=== PATIENT | male | born 1965 | race Caucasian/White ===

== ENCOUNTER 2022-01-07 06:46 | Day surgery (SDC) | payer BC, OTHER ==
[2022-01-07] MEDS ORDERED: LIDOCAINE HCL 2% 100 MG/5 ML IJ ONE (06:47)
[2022-01-07] MEDS ORDERED: DIPRIVAN 200 MG/20 ML IV ONE (08:05)
[2022-01-07] MEDS ORDERED: Lactated Ringers 1,000 ML IV ONE (08:57)
--- NOTE | 2022-01-07 10:25 | XRAY ---
Indication: Left C2-C4 MBB. Intraoperative fluoroscopy provided for 16 seconds. 2 digital spot image submitted for interpretation demonstrates posterior needle tips projecting over the expected left C2-C4 nerve roots. Correlate with intraoperative findings/report. Incidental incompletely visualized C3-C5 anterior fusion hardware.
--- NOTE | 2022-01-07 10:31 | XRAY ---
16 seconds fluoroscopy time in surgery for left C2-C4 MBB.
== END 2022-01-07 08:48 | disposition home or self-care (01) ==
LOC: SDC-PAIN 06:46
PROVIDERS: ATTEND Psychiatry & Neurology Pain Medicine
DX: M47.812 Spondylosis without myelopathy or radiculopathy, cervical region (principal); E11.9 Type 2 diabetes mellitus without complications; Z79.899 Other long term (current) drug therapy
CPT/HCPCS: 64490; 64491; 72040; 77002; 82947; J2704

== ENCOUNTER 2022-03-04 08:17 | Day surgery (SDC) | payer OTHER ==
[2022-03-04] MEDS ORDERED: Marcaine Mpf 0.5% Vial 30 Ml IJ ONE (08:18)
[2022-03-04] MEDS ORDERED: DIPRIVAN 200 MG/20 ML IV ONE (10:01)
[2022-03-04] MEDS ORDERED: Lactated Ringers 1,000 ML IV ONE (10:53)
--- NOTE | 2022-03-04 11:09 | XRAY ---
Indication: Left C2-C4 MBB. Intraoperative fluoroscopy provided for 20 seconds. 2 digital spot image submitted for interpretation demonstrates posterior needle tips projecting over the expected left C2-C4 nerve roots. Correlate with intraoperative findings/report. Incidental C3-C5 anterior fusion hardware.
--- NOTE | 2022-03-04 12:07 | XRAY ---
20 seconds of fluoroscopy was used in surgery for a left C2-C4 MBB.
== END 2022-03-04 10:23 | disposition home or self-care (01) ==
LOC: SDC-PAIN 08:17
PROVIDERS: ATTEND Psychiatry & Neurology Pain Medicine
DX: M47.812 Spondylosis without myelopathy or radiculopathy, cervical region (principal); E11.9 Type 2 diabetes mellitus without complications; Z79.899 Other long term (current) drug therapy
CPT/HCPCS: 64490; 64491; 72040; 77002; 82947; J2704

== ENCOUNTER 2022-04-01 11:57 | Day surgery (SDC) | payer OTHER ==
[2022-04-01] MEDS ORDERED: Decadron 4 MG INJ IV ONE (11:58)
[2022-04-01] MEDS ORDERED: Marcaine Mpf 0.5% Vial 30 Ml IJ ONE (11:58)
[2022-04-01] MEDS ORDERED: Xylocaine 1% Vial 30 ML PF IJ ONE (11:58)
[2022-04-01] MEDS ORDERED: DIPRIVAN 200 MG/20 ML IV ONE (12:59)
[2022-04-01] MEDS ORDERED: Lactated Ringers 1,000 ML IV ONE (15:30)
--- NOTE | 2022-04-01 17:27 | XRAY ---
Indication: Left C2-C4 RFA. Intraoperative fluoroscopy provided for 18 seconds. 2 digital spot image submitted for interpretation demonstrates posterior needle tip projecting projecting over the expected left C2-C4 nerve roots. Correlate with intraoperative findings/report. Incidental C3-C5 anterior fusion hardware.
--- NOTE | 2022-04-01 17:46 | XRAY ---
18 seconds of fluoroscopy was used in surgery for a left C2-C4 RFA.
== END 2022-04-01 15:55 | disposition home or self-care (01) ==
LOC: SDC-PAIN 11:57
PROVIDERS: ATTEND Psychiatry & Neurology Pain Medicine
DX: M47.812 Spondylosis without myelopathy or radiculopathy, cervical region (principal); E11.9 Type 2 diabetes mellitus without complications; Z79.899 Other long term (current) drug therapy
CPT/HCPCS: 01939; 64633; 64634; 72040; 77002; 82947; J1100; J2001; J2704

== ENCOUNTER 2023-01-27 09:04 | Day surgery (SDC) | payer MEDICARE ==
[2023-01-27] MEDS ORDERED: LIDOCAINE HCL 2% 100 MG/5 ML IJ ONE (09:05)
[2023-01-27] MEDS ORDERED: DIPRIVAN 200 MG/20 ML IV ONE (10:29)
--- NOTE | 2023-01-27 10:55 | XRAY ---
Indication: Right L4-S1 MBB. Intraoperative fluoroscopy provided for 14 seconds. Single digital spot image submitted for interpretation demonstrates posterior needle tips projecting over the expected left and right L4-S1 nerve roots. Correlate with intraoperative findings/report.
[2023-01-27] MEDS ORDERED: Lactated Ringers 1,000 ML IV ONE (11:05)
--- NOTE | 2023-01-27 13:17 | XRAY ---
14 seconds of fluoroscopy was used in surgery for a right L4-S1 MBB.
== END 2023-01-27 11:00 | disposition home or self-care (01) ==
LOC: SDC-PAIN 09:04
PROVIDERS: ATTEND Psychiatry & Neurology Pain Medicine
DX: M47.816 Spondylosis without myelopathy or radiculopathy, lumbar region (principal); E11.9 Type 2 diabetes mellitus without complications; Z79.899 Other long term (current) drug therapy
CPT/HCPCS: 64493; 64494; 72020; 77002; 82947; J2704

== ENCOUNTER 2023-04-14 07:48 | Day surgery (SDC) | payer MEDICARE ==
[2023-04-14] MEDS ORDERED: BUPIVACAINE 0.5% VIAL IJ ONE (07:49)
[2023-04-14] MEDS ORDERED: LIDOCAINE HCL 1% 50 MG/5 ML VL PF IJ ONE (07:49)
[2023-04-14] MEDS ORDERED: Depo-Medrol 40 MG/ML IM ONE (07:49)
[2023-04-14] MEDS ORDERED: DIPRIVAN 200 MG/20 ML IV ONE (09:08)
[2023-04-14] MEDS ORDERED: Lactated Ringers 1,000 ML IV ONE (09:25)
--- NOTE | 2023-04-14 10:17 | XRAY ---
Indication: Right L4-S1 RFA. Intraoperative fluoroscopy provided for 17 seconds. 3 digital spot images submitted for interpretation demonstrates posterior needle tips projecting over the right L4-S1 nerve roots. Correlate with intraoperative findings/report.
--- NOTE | 2023-04-14 10:53 | XRAY ---
17 seconds of fluoroscopy was used in surgery for a right L4-S1 RFA.
== END 2023-04-14 09:40 | disposition home or self-care (01) ==
LOC: SDC-PAIN 07:48
PROVIDERS: ATTEND Psychiatry & Neurology Pain Medicine
DX: M47.816 Spondylosis without myelopathy or radiculopathy, lumbar region (principal); E11.9 Type 2 diabetes mellitus without complications; Z79.899 Other long term (current) drug therapy
CPT/HCPCS: 64635; 64636; 72100; 77002; 82947; J1030; J2001; J2704

== ENCOUNTER → 2023-07-14 | Day surgery (SDC) | payer MEDICARE ==
[~2023-07-14] MED LIST: BUPIVACAINE 0.5% VIAL IJ ONE; DIPRIVAN 200 MG/20 ML IV ONE; Decadron 4 MG INJ IV ONE; Depo-Medrol 40 MG/ML IM ONE; Lactated Ringers 1,000 ML IV ONE; XYLOCAINE-MPF 1% 5ML SDV IJ ONE
--- NOTE | 2023-07-14 12:13 | XRAY ---
Indication: Right SI joint and right piriformis injection. Intraoperative fluoroscopy provided for 22 seconds. 5 digital spot image submitted for interpretation demonstrates posterior needle tip projecting over the right SI joint. Second needle tip projects over right piriformis with small amount of contrast injected for needle tip placement. Correlate with intraoperative findings/report.
--- NOTE | 2023-07-14 12:27 | XRAY ---
22 seconds of fluoroscopy was used in surgery for a right sacroiliac joint and right piriformis injection.
== END ==
LOC: SDC-PAIN 08:34
PROVIDERS: ATTEND Psychiatry & Neurology Pain Medicine
DX: M46.1 Sacroiliitis, not elsewhere classified (principal); M79.18 Myalgia, other site; E11.9 Type 2 diabetes mellitus without complications; Z79.899 Other long term (current) drug therapy
CPT/HCPCS: 01992; 20550; 27096; 72170; 77002; 82947; G0260; J1030; J1100; J2704; Q9966

== ENCOUNTER 2024-05-17 07:49 | Day surgery (SDC) | payer MEDICARE, SELFPAY ==
[2024-05-17] MEDS ORDERED: LIDOCAINE HCL 1% AMPUL 5 ML IJ ONE (07:50)
[2024-05-17] MEDS ORDERED: BUPIVACAINE 0.5% VIAL IJ ONE (07:50)
[2024-05-17] MEDS ORDERED: Depo-Medrol 40 MG/ML IM ONE (07:50)
[2024-05-17] MEDS ORDERED: Lactated Ringers 1,000 ML IV ONE (09:40)
[2024-05-17] MEDS ORDERED: DIPRIVAN 200 MG/20 ML IV ONE (09:47)
--- NOTE | 2024-05-17 11:59 | XRAY ---
Indication: Right L4-S1 RFA. Intraoperative fluoroscopy provided for 22 seconds. 4 digital spot image submitted for interpretation demonstrates posterior needle tips projecting over the expected right L4-S1 nerve roots. Correlate with intraoperative findings/report.
--- NOTE | 2024-05-17 13:01 | XRAY ---
22 seconds of fluoroscopy was used in surgery for a right L4-S1 RFA.
== END 2024-05-17 10:20 | disposition home or self-care (01) ==
LOC: SDC-PAIN 07:49
PROVIDERS: ATTEND Psychiatry & Neurology Pain Medicine
DX: M47.816 Spondylosis without myelopathy or radiculopathy, lumbar region (principal); E11.9 Type 2 diabetes mellitus without complications
CPT/HCPCS: 64635; 64636; 72100; 77002; 82947; J2704